=== PATIENT | male | born 1945 | race Caucasian/White ===

== ENCOUNTER 2021-07-27 15:37 | Emergency (ER) | payer OTHER, MEDICARE, SELFPAY ==
--- NOTE | ~2021-07-27 | CT_ITS ---
EXAMINATION: CT ABDOMEN AND PELVIS WITH CONTRAST CLINICAL INFORMATION: Left inguinal hernia. COMPARISON: None TECHNIQUE: Multidetector volumetric images were obtained from the superior aspect of the liver through the pubic symphysis following administration 85 mL of Omnipaque 350 intravenous contrast. Sagittal and coronal reformatted images were obtained on the technologist's workstation. Oral contrast: No This CT examination was performed using dose optimization techniques as appropriate, variously including the following: *Automated exposure control. *Adjustment of mA and/or kV according to patient size (this includes techniques or standardized protocols for targeted exams where dose is matched to indication/reason for exam; i.e. extremities or head). *Use of iterative reconstruction technique. DLP: 670 mGy-cm FINDINGS: LUNG BASES: The visualized lung bases are unremarkable. LIVER, GALLBLADDER, AND BILIARY TREE: The liver is normal in size, shape, and attenuation. No focal hepatic lesion or biliary ductal dilatation is present. The gallbladder is unremarkable with no evidence of radiopaque gallstones, gallbladder wall thickening, or obvious pericholecystic inflammatory changes. PANCREAS: Unremarkable. SPLEEN: Unremarkable. ADRENAL GLANDS: Unremarkable. KIDNEYS AND URETERS: The kidneys are normal in size, shape, and attenuation. No hydronephrosis, hydroureter, or calculi seen. No perinephric stranding. BLADDER: Unremarkable. GASTROINTESTINAL TRACT: There are a few scattered colonic diverticula. No evidence of acute diverticulitis. No bowel wall thickening or associated inflammatory change. No small or large bowel obstruction. Mild stool burden. Unremarkable appendix. PERITONEAL CAVITY: No intra-abdominal free air or free fluid. ABDOMINAL WALL: No significant hernia is appreciated. LYMPH NODES: Normal. VASCULAR: Unremarkable. PELVIC VISCERA: Prominent prostatomegaly. OSSEOUS STRUCTURES: S-shaped scoliotic curvature of the lumbosacral spine. No acute fracture or subluxation. No concerning lytic or blastic osseous lesion. CT/CT abdomen pelvis w con IMPRESSION: 1. No significant abdominal or pelvic wall hernia. 2. Scattered diverticulosis without evidence of acute diverticular disease. Mild stool burden. No small or large bowel obstruction. Unremarkable appendix. 3. Prominent prostatomegaly.
--- NOTE | ~2021-07-27 | US_ITS ---
EXAMINATION: US SCROTUM CLINICAL INFORMATION: Testicular pain. COMPARISON: None pertinent TECHNIQUE: A sonogram of the scrotum was performed assessing robb-scale appearance and color Doppler flow. Spectral Doppler analysis of the arterial and venous flow were performed in the testes bilaterally. FINDINGS: RIGHT: Right testicle measures 3.7 x 2.4 x 2.8 cm, volume 13.5 mL. No focal testicular parenchymal lesions are visualized. Spectral Doppler analysis of the arterial and venous flow is normal in the right testis. Right epididymal head is normal in size. There is a trace right hydrocele. No right varicocele is seen. Right epididymal Doppler flow is normal. LEFT: Left testicle measures 4.0 x 2.4 x 2.9 cm, volume 14.9 mL. No focal testicular parenchymal lesions are visualized. Spectral Doppler analysis of the arterial and venous flow is normal in the left testis. Left epididymal head is normal in size. Trace left hydrocele. No left varicocele is seen. Left epididymal Doppler flow is normal. US/US scrotum doppler IMPRESSION: Trace bilateral hydroceles. Otherwise unremarkable examination. No evidence of testicular torsion or hyperemia.
--- NOTE | ~2021-07-27 | US_ITS ---
EXAMINATION: US SCROTUM CLINICAL INFORMATION: Testicular pain. COMPARISON: None pertinent TECHNIQUE: A sonogram of the scrotum was performed assessing robb-scale appearance and color Doppler flow. Spectral Doppler analysis of the arterial and venous flow were performed in the testes bilaterally. FINDINGS: RIGHT: Right testicle measures 3.7 x 2.4 x 2.8 cm, volume 13.5 mL. No focal testicular parenchymal lesions are visualized. Spectral Doppler analysis of the arterial and venous flow is normal in the right testis. Right epididymal head is normal in size. There is a trace right hydrocele. No right varicocele is seen. Right epididymal Doppler flow is normal. LEFT: Left testicle measures 4.0 x 2.4 x 2.9 cm, volume 14.9 mL. No focal testicular parenchymal lesions are visualized. Spectral Doppler analysis of the arterial and venous flow is normal in the left testis. Left epididymal head is normal in size. Trace left hydrocele. No left varicocele is seen. Left epididymal Doppler flow is normal. US/US scrotum IMPRESSION: Trace bilateral hydroceles. Otherwise unremarkable examination. No evidence of testicular torsion or hyperemia.
[2021-07-27 15:43] VITALS: BP 140/90; BP 180/95; PULSE 60; PULSE 65; RESP 18; TEMP 36.7; O2SAT 98; BMI 24.3
[2021-07-27 16:17] LABS: Glucose Urine UA NEG (NEG); Leukocyte Esterase Urine NEG (NEG); Nitrite Urine NEG (NEG); PH 6.5 (5.0-8.0); Urine Blood NEG (NEG); Urine Ketones NEG (NEG); Urine Protein NEG (NEG-TRACE)
[2021-07-27 16:18] LABS: Appearance Urine CLEAR; Color Urine YELLOW
--- NOTE | 2021-07-27 16:52 | ED_ITS ---
HPI - Male Genitourinary General Chief complaint: Urogenital-Male Stated complaint: TESTICULAR PAIN, UNABLE TO URINATE Time Seen by Provider: 07/27/21 15:51 Source: patient Mode of arrival: ambulatory Limitations: other (mild dementia) History of Present Illness HPI Narrative: 75-year-old male who lives at independent living his mild dementia and thyroid disease presents for sudden onset of a feeling of heavy testicular pain at 8:00 a.m. this morning. Patient states the pain is worse with standing. No nausea vomiting or fevers. No dysuria, hematuria, or urinary retention. No penile discharge. is not sexually active. MD Complaint: testicle pain Onset (ago): hour(s) (8) Duration: constant Location: right testicle and left testicle Severity: moderate Severity scale (1-10): 5 Quality: dull Relieving factors: rest Exacerbating factors: other (Standing) Associated symptoms: Reports denies other symptoms Related Data Home Medications Medication Instructions Recorded Confirmed rivastigmine 13.3 mg/24 hour 1 patch TOPICAL DAILY 07/27/21 07/27/21 transdermal patch Allergies Allergy/AdvReac Type Severity Reaction Status Date / Time No Known Allergies Allergy Unverified 08/16/20 14:34 [No Known Allergies*] Review of Systems Constitutional: Constitutional: Denies chills and Denies fever(s) Eyes: Eyes: Denies blurry vision and Denies change in vision Cardiovascular: Cardiovascular: Denies chest pain and Denies dyspnea Respiratory: Respiratory: Denies chest congestion, Denies cough and Denies dyspnea Gastrointestinal: Gastrointestinal: Denies abdominal pain, Denies diarrhea, Denies nausea and Denies vomiting Genitourinary: Genitourinary: Denies hematuria, Denies oliguria, Denies difficulty urinating, Denies genital lesions, Denies dysuria, Denies flank pain, Denies penile discharge, Denies scrotal swelling, Reports testicular pain, Denies urinary frequency, Denies urinary hesitancy, Denies urinary incontinence and Denies urinary urgency Musculoskeletal: Musculoskeletal: Denies back pain, Denies numbness and Denies tingling Integumentary/Breasts: Skin/Breast: Denies erythema, Denies rash, Denies skin pain, Denies skin swelling and Denies wounds Neurologic: Denies numbness and Denies tingling PMFSH Past Medical History Medical History Dementia No known health problems Surgical History No history of previous surgery Social History Social History Advance Directives: No Advance Directives Information Provided: Yes Physical Exam Vital Signs: Vital Signs: Last Vital Signs Temp 97.6 F 07/27/21 20:06 Pulse 54 07/27/21 20:06 Resp 16 07/27/21 20:06 BP 164/100 H 07/27/21 20:06 Pulse Ox 97 07/27/21 20:06 Body Mass Index 24.3 Const: General: cooperative, no acute distress, well developed, alert and awake Nutritional Appearance: well nourished Orientation/consciousness: patient oriented x3 Limitations: other limitations (mild dementia) HENMT: Head: Yes normal to inspection, Yes normocephalic and Yes atraumatic Ears: hearing grossly normal bilaterally, external ears normal, TM's normal bilaterally and EAC's normal General nose exam: Normal external nose present Face and sinus: Yes normal facial exam and Yes sinuses nontender Mouth: Normal oral and palatal mucosa present Throat: Yes posterior oropharynx normal Eyes: Conjunctivae: conjunctivae normal Pupils: Equal, round and reactive pupils present EOM: EOMs intact bilaterally Neck: Neck: Yes full ROM, Yes no lymphadenopathy and Yes supple Resp: Effort & Inspection: normal respiratory effort and able to speak in comp lete sentences Auscultation: clear to auscultation bilaterally, no crackles, no rales, no rhonchi and no wheezes Cardio: Rate: regular rate Rhythm: regular rhythm Heart sounds: S1 normal heart sound present and S2 normal heart sound present GI: Inspection: Yes normal to inspection Palpation (GI): Soft to palpation, nontender, no guarding and not rigid Percussion: Yes normal to percussion Auscultation: normal bowel sounds : General: Yes no CVA tenderness Male General Exam: Yes normal external exam, No ecchymosis, No edema, No erythema and No Genital lesions present Penis: normal penis, circumcised, no masses, no nodules, no papules, no pustules, no swelling, no ulcerations and No Genital lesions present Meatus: meatus normal and No Blood at meatus present Scrotum: scrotum normal, no ecchymosis, not edematous, not erythematous, testes descended bilaterally, no hydroceles, inguinal hernia on the left, no masses, no scrotal swelling and no varicoceles Testes: epididymides normal, no epidiymal tenderness, no testicular swelling and testicular tenderness diffuse Back/Spine/Pelvis: Back: no CVA tenderness Skin: General skin exam: no rashes or lesions noted Neuro: General: patient oriented x3, tone normal and moves all extremities Cranial nerves: Yes Equal, round and reactive pupils present Extrem: General: Yes normal to inspection and Yes full ROM Psych: Appearance: grossly normal Affect: normal affect Attitude: cooperative Thought process: Normal thought process present Course Course Course Narrative: 75-year-old male presents with new onset bilateral testicular pain that started at 8:00 a.m. this morning. Patient felt like ?my bowels will drop out?. States the pain has been a heavy sensation is worse with standing. On exam, patient has stable vitals, urine is clean, patient mild tenderness to bilateral testicles. Patient has reducible lump in left inguinal area. Ultrasound shows normal venous flow, with trace bilateral hydroceles. Will CT for inguinal hernia. CT shows no hernia, does show large prostate CT abd/pelvis: 1. No significant abdominal or pelvic wall hernia. ? 2. Scattered diverticulosis without evidence of acute diverticular disease. Mild stool burden. No small or large bowel obstruction. Unremarkable appendix. ? 3. Prominent prostatomegaly. Advised patient to follow-up with Urologist. Referred patinet to Dr Farmer [facility] - Male Genitourinary Lab Data Result diagrams: 07/27/21 17:43 07/27/21 17:43 Labs: Lab Results 07/27/21 07/27/21 07/27/21 Range/Units 16:01 17:43 17:43 WBC 7.5 (4.8-10.8) X10*3/uL RBC 4.69 (4.60-5.80) X10*6/uL Hgb 14.7 (14.0-18.0) g/dl Hct 42.8 (42-52) % MCV 91.3 (80-98) fL MCH 31.3 (27.0-33.0) pg MCHC 34.3 (31.0-36.0) g/dl RDW 12.9 (11.0-16.0) % Plt Count 231 (160-400) X10*3/uL MPV 9.2 L (9.4-12.4) fL Immature Gran % (Auto) 0.1 (0.0-0.4) % Neut % (Auto) 56.2 (45-73) % Lymph % (Auto) 33.6 (20-40) % [place] % (Auto) 7.4 (2-11) % Eos % (Auto) 2.3 (0-4) % Baso % (Auto) 0.4 (0-2) % Lymph # (Auto) 2.5 (1.2-4.9) X10*3/uL [place] # (Auto) 0.6 (0.1-1.2) X10*3/uL Eos # (Auto) 0.2 (0.0-0.4) X10*3/uL Baso # (Auto) 0.0 (0.0-0.2) X10*3/uL Abs Immat Gran (auto) 0.01 (0.00-0.03) X10*3/uL Absolute Neuts (auto) 4.2 (2.0-8.3) X10*3/uL Absolute Nucleated RBC 0.000 (0.0-0.012) X10*3/uL Nucleated RBC % (auto) 0.0 (0.0-0.2) /100WBC Sodium 140 (135-145) mmol/L Potassium 4.2 (3.3-5.1) mmol/L Chloride 105 (96-108) mmol/L Carbon Dioxide 26 (22-29) mmol/L Anion Gap 13 (12-20) BUN 17 H (9-16) mg/dL Creatinine 1.05 (0.5-1.4) mg/dL Estim Creat Clear Calc 58.9 Estimated GFR > 60 Random Glucose 92 (60-115) mg/dL Calcium 9.0 (8.4-10.2) mg/dL Total Bilirubin 0.3 (0.0-1.0) mg/dL AST 19 (5-37) U/L ALT 19 (0-40) U/L Alkaline Phosphatase 61 (39-117) U/L Total Protein 6.9 (6.5-8.0) g/dL Albumin 4.4 (3.5-5.0) g/dL Urine Color YELLOW Urine Appearance CLEAR Urine pH 6.5 (5.0-8.0) Ur Specific [place] 1.010 (1.005-1.025) Urine Protein NEG (NEG-TRACE) MG/DL Urine Glucose (UA) NEG (NEG) MG/DL Urine Ketones NEG (NEG) MG/DL Urine Blood NEG (NEG) Urine Nitrite NEG (NEG) Ur Leukocyte Esterase NEG (NEG) Discharge Plan Discharge Clinical Impression: Enlarged prostate Patient Disposition: Home, Self-Care Instructions: Enlarged Prostate (BPH) (ED) Additional Instructions: Please call Dr Farmer, Urologist at [phone] Please return to emergency room for new or concerning symptoms Prescriptions: No Action rivastigmine 13.3 mg/24 hour patch 24 hour 1 patch topical DAILY RF: 0 Referrals: Nicholas Farmer MD [Physician] - 2 days (testicular pain, normal US, CT s howed enlarged prostate)
[2021-07-27] MEDS: 0.9 % Sodium Chloride 1,000 ML 999 ML IV (17:45)
[2021-07-27 17:47] LABS: MANUAL DIFF FLAG NO
[2021-07-27 17:49] LABS: Basophils Percent Auto 0.4 % (0-2); Eosinophils Absolute Auto 0.2 X10*3/uL (0.0-0.4); Eosinophils Percent Auto 2.3 % (0-4); Hematocrit 42.8 % (42-52); Hemoglobin 14.7 g/dl (14.0-18.0); Imm Gran Abs Auto 0.01 X10*3/uL (0.00-0.03); Imm Gran Pct Auto 0.1 % (0.0-0.4); Lymphocytes Absolute Auto 2.5 X10*3/uL (1.2-4.9); Lymphocytes Percent Auto 33.6 % (20-40); Mean Corpuscular HGB Conc 34.3 g/dl (31.0-36.0); Mean Corpuscular Hemoglobin 31.3 pg (27.0-33.0); Mean Corpuscular Volume 91.3 fL (80-98); Mean Platelet Volume 9.2 fL (9.4-12.4); Monocytes Absolute Auto 0.6 X10*3/uL (0.1-1.2); Monocytes Percent Auto 7.4 % (2-11); Neutrophils Absolute Auto 4.2 X10*3/uL (2.0-8.3); Neutrophils Percent Auto 56.2 % (45-73); Platelet Count 231 X10*3/uL (160-400); Red Blood Count 4.69 X10*6/uL (4.60-5.80); Red Cell Distribution Width 12.9 % (11.0-16.0); White Blood Count 7.5 X10*3/uL (4.8-10.8)
[2021-07-27 18:11] LABS: Alanine Aminotransferase 19 U/L (0-40); Albumin Level 4.4 g/dL (3.5-5.0); Alkaline Phosphatase 61 U/L (39-117); Anion Gap 13 (12-20); Aspartate Amino Transferase 19 U/L (5-37); Bilirubin Total 0.3 mg/dL (0.0-1.0); Blood Urea Nitrogen 17 mg/dL (9-16); Carbon Dioxide 26 mmol/L (22-29); Chloride 105 mmol/L (96-108); Creatinine Clr Calc Pharmacy 58.9; Estimated Glomerular Filt Rate > 60; Glucose Random 92 mg/dL (60-115); Potassium 4.2 mmol/L (3.3-5.1); Sodium 140 mmol/L (135-145); Total Protein 6.9 g/dL (6.5-8.0)
[2021-07-27] MEDS: iohexoL 350 MG/ML 100 ML INFUS..BTL IV (20:01)
[2021-07-27 20:06] VITALS: BP 164/100; PULSE 54; RESP 16; TEMP 36.4; O2SAT 97
== END 2021-07-27 21:21 | disposition home or self-care (01) ==
PROVIDERS: Physician Assistant; Emergency Provider Emergency Medicine; PCP Internal Medicine
DX: N40.0 Benign prostatic hyperplasia without lower urinary tract symptoms (principal); N50.812 Left testicular pain; N50.811 Right testicular pain
CPT/HCPCS: 36415; 74177; 76870; 80053; 81003; 85025; 93975; 96360; 99284; Q9967

== ENCOUNTER → 2021-08-21 09:07 | Outpatient (BNVA) | payer MEDICARE, OTHER, SELFPAY | PROVIDERS: PCP Internal Medicine; Visit Provider Urology | DX: R10.32 Left lower quadrant pain (principal) | CPT/HCPCS: 99202 ==

== ENCOUNTER 2022-12-13 18:34 | Observation (INO) | payer OTHER, MEDICARE, SELFPAY ==
--- NOTE | 2022-12-13 | ECG_ITS ---
Test Reason : dizziness Blood Pressure : / mmHG Vent. Rate : 057 BPM Atrial Rate : 057 BPM P-R Int : 134 ms QRS Dur : 080 ms QT Int : 452 ms P-R-T Axes : 015 005 056 degrees QTc Int : 439 ms Sinus bradycardia Otherwise normal ECG When compared with ECG of 16-OCT-2008 15:39, No significant change was found Referred By: Generic ED Physician Electronically Signed By:SHEYLA POSEY MD
--- NOTE | ~2022-12-13 | CT_ITS ---
EXAMINATION: CT ABDOMEN AND PELVIS WITH CONTRAST CLINICAL INFORMATION: Evaluate for pancreatitis COMPARISON: 07/27/2021 TECHNIQUE: Multidetector volumetric images were obtained from the superior aspect of the liver through the pubic symphysis following administration 85 mL of Omnipaque 350 intravenous contrast. Sagittal and coronal reformatted images were obtained on the technologist's workstation. Oral contrast: No This CT examination was performed using dose optimization techniques as appropriate, variously including the following: *Automated exposure control *Adjustment of mA and/or kV according to patient size (this includes techniques or standardized protocols for targeted exams where dose is matched to indication/reason for exam; i.e. extremities or head) *Use of iterative reconstruction technique DLP: 547 mGy-cm FINDINGS: LUNG BASES: Small 2 mm nodule on image 3 left lower lung stable LIVER, GALLBLADDER, AND BILIARY TREE: The liver is normal in size, shape, and attenuation. No focal hepatic lesion or biliary ductal dilatation is present. The gallbladder is unremarkable with no evidence of radiopaque gallstones, gallbladder wall thickening, or obvious pericholecystic inflammatory changes. PANCREAS: There is some fullness in the region of the distal body of the pancreas. SPLEEN: Unremarkable. ADRENAL GLANDS: Unremarkable. KIDNEYS AND URETERS: The kidneys are normal in size, shape, and attenuation. No hydronephrosis, hydroureter, or calculi seen. No perinephric stranding. BLADDER: Unremarkable. GASTROINTESTINAL TRACT: The bowel pattern is felt to be nonobstructing. Diverticula disease but no evidence for diverticulitis ABDOMINAL WALL: No significant hernia is appreciated. LYMPH NODES: Normal. VASCULAR: Some atherosclerotic changes. PELVIC VISCERA: Prominent prostate. OSSEOUS STRUCTURES: Unremarkable. CT/CT abdomen pelvis w IV con IMPRESSION: Motion degrades imaging. There is some fullness in the distal body of the pancreas with mild heterogeneous density. Element of pancreatitis would need to be considered given the history. Follow-up would be recommended as an underlying lesion cannot be excluded. Otherwise the bowel pattern is nonobstructing. There is no free fluid. Other findings as noted above Fleischner guidelines were followed.
--- NOTE | ~2022-12-13 | XR_ITS ---
EXAMINATION: XR CHEST CLINICAL INFORMATION: Low suspicion for aspiration COMPARISON: 09/15/2008 TECHNIQUE: Frontal view of the chest was obtained. FINDINGS: No infiltrate. The lung miller are grossly clear. Comparable to previous. The cardiac silhouette is within normal limits. Calcification in the aortic arch. Mildly tortuous versus ectatic aorta XR/XR chest 1V IMPRESSION: No acute finding.
--- NOTE | ~2022-12-13 | MR_ITS ---
EXAMINATION: MRI ABDOMEN WITH AND WITHOUT CONTRAST CLINICAL INFORMATION: abdominal pain, rule out pancreatic mass COMPARISON: 12/13/2022 CT scan TECHNIQUE: Multiple routine MRI sequences through the abdomen were obtained on a high-field 1.5Tesla MRI. Pre-and postcontrast images with 7.5 mL of Gadavist intravenous contrast were obtained. This included a dynamic contrast-enhanced technique. Images are degraded by patient respiratory motion. FINDINGS: Lung bases: The visualized lung bases are unremarkable. Liver: The liver is grossly normal in size, shape, and signal. No suspicious focal hepatic lesions seen. Specifically no suspicious arterial phase enhancing lesions or suspicious washout of contrast on later phases. No biliary ductal dilatation. Gallbladder: Gallbladder is unremarkable. No suspicious gallstones or filling defects. No gallbladder wall thickening or pericholecystic inflammatory changes. Pancreas: Pancreas body, neck, and head are homogeneous in signal. There is mild atrophy and fatty replacement in the region of the pancreatic tail but I do not appreciate any pancreatic ductal dilatation in this location or suspicious enhancing pancreatic mass. No pancreatic ductal dilatation or obstruction. Pancreatic duct measures up to 2 mm in maximal diameter. No peripancreatic inflammatory changes or fluid. Spleen: Unremarkable Adrenals: Unremarkable Kidneys: Kidneys are normal in size, shape, and signal. No suspicious renal mass lesion seen. No hydronephrosis or perinephric edema. Other: No bulky adenopathy MR/MR abdomen wo/w con IMPRESSION: There is mild atrophy and fatty replacement in the region of the pancreatic tail but I do not appreciate any suspicious pancreatic mass lesion or pancreatic ductal dilatation. No peripancreatic inflammatory changes or fluid.
[2022-12-13 18:43] VITALS: BP 148/78; BP 172/89; PULSE 60; PULSE 61; RESP 20; TEMP 36.4; O2SAT 100; BMI 24.1
--- NOTE | 2022-12-13 19:38 | ED_ITS ---
HPI - General Adult General Chief complaint: Dizziness Stated complaint: Dizzy, vomiting, diff breathing per EMS Time Seen by Provider: 12/13/22 19:21 Source: patient and family Mode of arrival: ambulatory Limitations: no limitations History of Present Illness HPI narrative: Patient comes to the emergency room accompanied by his daughter. Earlier today, patient was eating dinner at home, patient had a sudden onset of epigastric pressure and 1 episode of vomiting. No diarrhea, no fever chills. No abdominal pain. At this time, after vomiting, patient states that he feels well and back to normal. Related Data Home Medications Medication Instructions Recorded Confirmed rivastigmine 13.3 mg/24 hour 1 patch topical DAILY 07/27/21 07/27/21 transdermal patch levothyroxine 50 mcg tablet 50 mcg PO DAILY 08/21/21 Allergies Allergy/AdvReac Type Severity Reaction Status Date / Time No Known Allergies Allergy Unverified 08/21/21 09:12 [No Known Allergies*] Review of Systems Review of Systems: Constitutional : No Weight loss, No Fever, No Chills, No Night Sweats, No Fatigue, No Malaise ENT/Mouth : No Hearing loss, No Ear Pain, No Nasal Congestion, No Sinus Pain, No Hoarseness, No sore throat, No Rhinorrhea, No Swallowing Difficulty Eyes: No Eye Pain, No Swelling, No Redness, No Foreign Body, No Discharge, No Vision Changes Cardiovascular : No Chest Pain, No SOB, No Dyspnea on Exertion, No Orthopnea, No Edema, No Palpitations Respiratory : No Cough, No Sputum, No Wheezing, No Smoke Exposure, No Dyspnea Gastrointestinal : 1 episode of nausea and vomiting, No Diarrhea, No Constipation, mild epigastric pressure that resolved after vomiting, No Hematochezia, No Melena Genitourinary : no irregular bleeding, No Dysuria, No Urinary Frequency, No Hematuria, No Urinary Incontinence, No Urgency, No Flank Pain, No Urinary Flow Changes, No Hesitancy Musculoskeletal : No joint pain, No Myalgias, No Joint Swelling Skin : No Skin Lesions, No rash Neuro : No Weakness, No Numbness, No Paresthesias, No Loss of Consciousness, No Dizziness, No Headache Psych : No Anxiety/Panic, No Depression, No SI/HI/AH/VH, No Social Issues, Heme/Lymph: No Bruising, No Bleeding,No Lymphadenopathy Endocrine : No Polyuria, No Polydipsia, No Temperature Intolerance [facility] Past Medical History Medical History (Updated 12/13/22 @ 23:46 by Doris Ricketts MD) Dementia Hypothyroidism Surgical History No history of previous surgery Family History Family History (Updated 12/13/22 @ 23:39 by Doris Ricketts MD) Sister Pancreatic cancer Social History Social History Advance Directives: No Advance Directives Information Provided: No Physical Exam ED Vital Signs: Vital Signs - 24 hr 12/13/22 18:43 12/13/22 20:01 12/13/22 22:00 Temperature 97.5 F 97.9 F Pulse Rate 61 55 61 Respiratory Rate 20 17 16 Blood Pressure 172/89 H 161/83 H 155/81 H Pulse Oximetry 100 95 95 Oxygen Delivery Method Room Air Room Air Room Air BMI result Body Mass Index 24.1 Const Other: Appearance: Alert. Oriented X3. No acute distress. Eyes: Pupils equal, round and reactive to light. ENT: Pharynx normal. Neck: Normal inspection. Neck supple. No lymph nodes noted. No crepitus CVS: Normal heart rate and rhythm. Pulses normal. Normal S1 and S2 Respiratory: No respiratory distress. Breath sounds normal. No Wheezing. No rales Abdomen: Soft and nontender. No rigidity. No distention. Skin: Skin warm and dry. Normal skin color. Normal skin turgor. Extremities: No lower extremity edema. No Lacerations. No Rash Neuro: Oriented X 3. No motor deficit. No sensory deficit. Moving all extremities. No slurred speech. CN 2 through 12 grossly intact Psych: calm, cooperative, normal affect Course Course Course Narrative: -patient well-appearing, no longer having any symptoms -patient's labs pending. -patient declined nausea or pain medication. -lipase is elevated, patient has no symptoms. -I ordered a CT scan, which shows fullness in the distal body of the pancreas. This could be pancreatitis with a lesion cannot be ruled out -I discussed the CT scan findings with the patient and his daughter. They informed me that the patient's sister last year of pancreatic cancer -I discussed the above-mentioned with Dr. Hull, patient being admitted. Patient may need more advanced imaging. Medications Administered Discontinued Medications Generic Name Dose Route Start Last Admin Trade Name Freq PRN Reason Stop Dose Admin Sodium Chloride 1,000 mls @ 999 mls/hr 12/13/22 19:33 12/13/22 19:59 Ns IVCONT 12/13/22 20:33 999 mls/hr .Q1H1M ONE Administration Iohexol 100 ml 12/13/22 22:37 12/13/22 22:38 Iohexol 350 Mg/Ml 100 Ml Infus..Btl IV 12/13/22 22:38 85 ml ONCE ONE Administration Medical Decision Making Differential Diagnosis Differential Diagnoses: The differential diagnosis associated with the presentation includes (Viral syndrome, pancreatitis, pancreatic mass) Admission/Observation Consideration of admission/observation: Escalation of care including admission/observation considered (Given the patient's labs, CT scan and family history, we will go ahead and admit the patient.) Consult Healthcare Provider Management of the patient was discussed with: Hospitalist Lab Data MDM Lab Attestation statement: I reviewed the patient's lab results. 12/13/22 19:56 12/13/22 19:56 Labs: Lab Results 12/13/22 12/13/22 12/13/22 Range/Units 19:55 19:56 19:56 WBC 9.8 (4.8-10.8) X10*3/uL RBC 4.80 (4.60-5.80) X10*6/uL Hgb 15.0 (14.0-18.0) g/dl Hct 43.0 (42.0-52.0) % MCV 89.6 (80.0-98.0) fL MCH 31.3 (27.0-33.0) pg MCHC 34.9 (31.0-36.0) g/dl RDW 12.9 (11.0-16.0) % Plt Count 234 (160-400) X10*3/uL MPV 9.1 L (9.4-12.4) fL Immature Gran % (Auto) 0.3 (0.0-0.4) % Neut % (Auto) 82.1 H (45-73) % Lymph % (Auto) 10.7 L (20-40) % [place] % (Auto) 5.9 (2-11) % Eos % (Auto) 0.6 (0-4) % Baso % (Auto) 0.4 (0-2) % Lymph # (Auto) 1.1 L (1.2-4.9) X10*3/uL [place] # (Auto) 0.6 (0.1-1.2) X10*3/uL Eos # (Auto) 0.1 (0.0-0.4) X10*3/uL Baso # (Auto) 0.0 (0.0-0.2) X10*3/uL Abs Immat Gran (auto) 0.03 (0.00-0.03) X10*3/uL Absolute Neuts (auto) 8.0 (2.0-8.3) x10*3/uL Absolute Nucleated RBC 0.000 (0.0-0.012) X10*3/uL Nucleated RBC % (auto) 0.0 (0.0-0.2) /100WBC Sodium 139 (135-145) mmol/L Potassium 3.6 (3.3-5.1) mmol/L Chloride 104 (96-108) mmol/L Carbon Dioxide 24 (22-29) mmol/L Anion Gap 15 (12-20) BUN 17 H (9-16) mg/dL Creatinine 0.99 (0.5-1.4) mg/dL Estim Creat Clear Calc 62.4 Estimated GFR > 60 Random Glucose 137 H (60-115) mg/dL Calcium 8.9 (8.4-10.2) mg/dL Total Bilirubin 0.5 (0.0-1.0) mg/dL Direct Bilirubin 0.2 (0.0-0.5) mg/dL AST 20 (5-37) U/L ALT 23 (0-40) U/L Alkaline Phosphatase 85 (39-117) U/L Troponin I High Sens (<3.5-35.0) ng/L Total Protein 7.0 (6.5-8.0) g/dL Albumin 4.2 (3.5-5.0) g/dL Lipase 437 H (8-78) U/L COVID-19 (JEANETH) Negative (Negative) COVID-19 Clin Com See Note 12/13/22 Range/Units 19:56 WBC (4.8-10.8) X10*3/uL RBC (4.60-5.80) X10*6/uL Hgb (14.0-18.0) g/dl Hct (42.0-52.0) % MCV (80.0-98.0) fL MCH (27.0-33.0) pg MCHC (31.0-36.0) g/dl RDW (11.0-16.0) % Plt Count (160-400) X10*3/uL MPV (9.4-12.4) fL Immature Gran % (Auto) (0.0-0.4) % Neut % (Auto) (45-73) % Lymph % (Auto) (20-40) % [place] % (Auto) (2-11) % Eos % (Auto) (0-4) % Baso % (Auto) (0-2) % Lymph # (Auto) (1.2-4.9) X10*3/uL [place] # (Auto) (0.1-1.2) X10*3/uL Eos # (Auto) (0.0-0.4) X10*3/uL Baso # (Auto) (0.0-0.2) X10*3/uL Abs Immat Gran (auto) (0.00-0.03) X10*3/uL Absolute Neuts (auto) (2.0-8.3) x10*3/uL Absolute Nucleated RBC (0.0-0.012) X10*3/uL Nucleated RBC % (auto) (0.0-0.2) /100WBC Sodium (135-145) mmol/L Potassium (3.3-5.1) mmol/L Chloride (96-108) mmol/L Carbon Dioxide (22-29) mmol/L Anion Gap (12-20) BUN (9-16) mg/dL Creatinine (0.5-1.4) mg/dL Estim Creat Clear Calc Estimated GFR Random Glucose (60-115) mg/dL Calcium (8.4-10.2) mg/dL Total Bilirubin (0.0-1.0) mg/dL Direct Bilirubin (0.0-0.5) mg/dL AST (5-37) U/L ALT (0-40) U/L Alkaline Phosphatase (39-117) U/L Troponin I High Sens < 3.5 (<3.5-35.0) ng/L Total Protein (6.5-8.0) g/dL Albumin (3.5-5.0) g/dL Lipase (8-78) U/L COVID-19 (JEANETH) (Negative) COVID-19 Clin Com Independent Interpretation I performed an independent interpretation of an: CT Scan (My interpretation of abdominal CT: Mildly enlarged pancreas.) Radiology Impression Discussion of test interpretation with radiology: I have reviewed the radiologist's reading. Radiologist Impression: INDINGS: LUNG BASES: Small 2 mm nodule on image 3 left lower lung stable LIVER, GALLBLADDER, AND BILIARY TREE: The liver is normal in size, shape, and attenuation. No focal hepatic lesion or biliary ductal dilatation is present. The gallbladder is unremarkable with no evidence of radiopaque gallstones, gallbladder wall thickening, or obvious pericholecystic inflammatory changes.? PANCREAS: There is some fullness in the region of the distal body of the pancreas.? SPLEEN: Unremarkable.? ADRENAL GLANDS: Unremarkable.? KIDNEYS AND URETERS: The kidneys are normal in size, shape, and attenuation. No hydronephrosis, hydroureter, or calculi seen. No perinephric stranding. ? BLADDER: Unremarkable.? GASTROINTESTINAL TRACT: The bowel pattern is felt to be nonobstructing. Diverticula disease but no evidence for diverticulitis? ABDOMINAL WALL: No significant hernia is appreciated.? LYMPH NODES: Normal. VASCULAR: Some atherosclerotic changes. PELVIC VISCERA: Prominent prostate.? OSSEOUS STRUCTURES: Unremarkable.? CT/CT abdomen pelvis w IV con IMPRESSION: Motion degrades imaging. There is some fullness in the distal body of the pancreas with mild heterogeneous density. Element of pancreatitis would need to be considered given the history. Follow-up would be recommended as an underlying lesion cannot be excluded. ? Otherwise the bowel pattern is nonobstructing. There is no free fluid. ? Other findings as noted above? ? Fleischner guidelines were followed. Independent Historian Clinical information obtained from an independent historian. History obtained from or confirmed by: Other Patient's daughter Critical Care Time Critical Care Time Critical Care Time: Yes Total Critical Care Time: 40 Attestation: I have personally provided critical care time. Time includes review of lab data, radiology results, discussion with consultants, and monitoring for potential decompensation. Intervention performed as documented. Discharge Plan Discharge Clinical Impression: Acute pancreatitis Patient Disposition: Admitted As Inpatient Prescriptions: No Action rivastigmine 13.3 mg/24 hour patch 24 hour 1 patch topical DAILY levothyroxine 50 mcg tablet 50 mcg PO DAILY
[2022-12-13] MEDS: 0.9 % Sodium Chloride 1,000 ML 999 ML IVCONT (19:59)
[2022-12-13 20:00] LABS: MANUAL DIFF FLAG NO
[2022-12-13 20:01] VITALS: BP 161/83; PULSE 55; RESP 17; O2SAT 95
[2022-12-13 20:03] LABS: Basophils Percent Auto 0.4 % (0-2); Eosinophils Absolute Auto 0.1 X10*3/uL (0.0-0.4); Eosinophils Percent Auto 0.6 % (0-4); Imm Gran Abs Auto 0.03 X10*3/uL (0.00-0.03); Imm Gran Pct Auto 0.3 % (0.0-0.4); Lymphocytes Absolute Auto 1.1 X10*3/uL (1.2-4.9); Lymphocytes Percent Auto 10.7 % (20-40); Mean Corpuscular HGB Conc 34.9 g/dl (31.0-36.0); Mean Corpuscular Hemoglobin 31.3 pg (27.0-33.0); Mean Corpuscular Volume 89.6 fL (80.0-98.0); Mean Platelet Volume 9.1 fL (9.4-12.4); Monocytes Absolute Auto 0.6 X10*3/uL (0.1-1.2); Monocytes Percent Auto 5.9 % (2-11); Neutrophils Percent Auto 82.1 % (45-73); Platelet Count 234 X10*3/uL (160-400); Red Cell Distribution Width 12.9 % (11.0-16.0); White Blood Count 9.8 X10*3/uL (4.8-10.8)
[2022-12-13 20:17] LABS: COVID-19 Test Negative (Negative); IDNOW Serial# 55D5AD1C
[2022-12-13 20:23] LABS: Alanine Aminotransferase 23 U/L (0-40); Albumin Level 4.2 g/dL (3.5-5.0); Alkaline Phosphatase 85 U/L (39-117); Anion Gap 15 (12-20); Aspartate Amino Transferase 20 U/L (5-37); Bilirubin Direct 0.2 mg/dL (0.0-0.5); Bilirubin Total 0.5 mg/dL (0.0-1.0); Blood Urea Nitrogen 17 mg/dL (9-16); Calcium 8.9 mg/dL (8.4-10.2); Carbon Dioxide 24 mmol/L (22-29); Chloride 104 mmol/L (96-108); Creatinine Clr Calc Pharmacy 62.4; Estimated Glomerular Filt Rate > 60; Glucose Random 137 mg/dL (60-115); Potassium 3.6 mmol/L (3.3-5.1); Sodium 139 mmol/L (135-145)
[2022-12-13 20:25] LABS: Troponin-I High Sensitivity < 3.5 ng/L (<3.5-35.0)
[2022-12-13 20:35] LABS: Lipase 437 U/L (8-78)
[2022-12-13 22:00] VITALS: BP 155/81; PULSE 61; RESP 16; TEMP 36.6; O2SAT 95
--- NOTE | 2022-12-13 22:03 | MHC.EDTECH ---
2200 rounding done patient vitals sign taken ,warm blanket given ,pt daughter at bedside ,patient watching television .
[2022-12-13] MEDS: iohexoL 350 MG/ML 100 ML INFUS..BTL IV (22:38)
--- NOTE | 2022-12-13 23:59 | P.HPHOSP_ITS ---
History of Present Illness Date of Service: 12/13/22 Chief Complaint: nausea vomiting, abdominal pain patient with past medical history of Alzheimer's as well as hypothyroidism presents to the hospital with episodes of nausea vomiting, abdominal pain. Patient has advanced Alzheimer's, has difficulty expressing himself in words, but his daughter at bedside helped with history. apparently while having dinner patient developed sudden onset abdominal pain across the abdomen, then shortly after developed projectile nausea and vomiting. Has not had any recurrent episodes while in the ED. denies any previous similar episodes, reports no recent weight loss, reports no history of alcohol abuse. daughter reports that the pt's sister from pancreatic cancer recently, on arrival to the hospital patient hemodynamically stable with elevated blood pressure Labs are unremarkable except for a lipase of 437, abdominal CT shows abdominal pelvic CT shows fullness in the distal body of the pancreas with mild heterogeneous density, element of pancreatitis with need to be considered given the history, follow-up is recommended Review of Systems Review of Systems: Yes all other systems are reviewed and are negative FORMERLY [facility], [facility] Medical History Dementia Hypothyroidism Family History Sister Pancreatic cancer Surgical History No history of previous surgery Social History Household Members: Caregiver Housing: Assisted Living Facility Unable to assess alcohol history related to: Unknown Patient Tobacco Use Status: Tobacco use Unknown Use of substances other than those prescribed or required for medical reasons: Unknown Advance Directives: No Advance Directives Information Provided: No Do you have thoughts of harming others: None Do you have a plan to hurt others: No Plan Recently lost weight without trying: Unsure How much weight loss: Unsure Nutrition Risks: No Nutritional Risk Meds Allergies Allergy/AdvReac Type Severity Reaction Status Date / Time No Known Allergies Allergy Unverified 08/21/21 09:12 [No Known Allergies*] Active Medications: Current Medications Acetaminophen (Acetaminophen 325 Mg Tablet) 650 mg PO Q6H PRN PRN Reason: Pain, Mild (Pain Scale 1-3) Docusate Sodium (Docusate Sodium 100 Mg Capsule) 100 mg PO DAILY PRN PRN Reason: Constipation Enoxaparin Sodium (Enoxaparin Sodium 40 Mg/0.4 Ml Syringe) 40 mg SUBCUT Q24H [facility] Lactated Ringer's (Lr) 1,000 mls @ 150 mls/hr IVCONT .Q6H40M [facility] Ondansetron HCl (Ondansetron Hcl 4 Mg/2 Ml Vial) 4 mg IVPUSH Q8H PRN PRN Reason: Nausea and Vomiting Sodium Chloride (0.9 % Sodium Chloride Flush 3 Ml Syringe) 3 ml IVFLUSH QSHIFT [facility] Home Medications Medication Instructions Recorded Confirmed Last Taken Type rivastigmine 13.3 mg/24 hour 1 patch topical DAILY 07/27/21 07/27/21 Unknown History transdermal patch levothyroxine 50 mcg tablet 50 mcg PO DAILY 08/21/21 Unknown History Physical Exam Vital Signs and Narrative: Vital Signs: Last Vital Signs Temp 97.9 F 12/13/22 22:00 Pulse 61 12/13/22 22:00 Resp 16 12/13/22 22:00 BP 155/81 H 12/13/22 22:00 Pulse Ox 95 12/13/22 22:00 O2 Del Method 12/13/22 22:00 BMI result Body Mass Index 24.1 Const: Other: patient is alert oriented, but has dementia General: cooperative and no acute distress Eyes: General: appearance normal, both eyes and all related structures Resp: Effort & Inspection: normal respiratory effort Auscultation: clear to auscultation bilaterally Cardio: Rate: regular rate Rhythm: regular rhythm GI: Other: abd is non-tender, no rebound or guarding Palpation (GI): Soft to palpation Auscultation: normal bowel sounds Skin: General skin exam: no rashes or lesions noted Neuro: Cognition (Neuro): normal cognition Extrem: General: Yes normal to inspection and Yes no pedal edema Results Labs 12/13/22 19:56 12/13/22 19:56 Labs: Laboratory Results - last 24 hr 12/13/22 12/13/22 12/13/22 19:55 19:56 19:56 MCV 89.6 MCH 31.3 MCHC 34.9 RDW 12.9 Plt Count 234 MPV 9.1 L Immature Gran % (Auto) 0.3 Neut % (Auto) 82.1 H Lymph % (Auto) 10.7 L Cabell % (Auto) 5.9 Eos % (Auto) 0.6 Baso % (Auto) 0.4 Lymph # (Auto) 1.1 L Cabell # (Auto) 0.6 Eos # (Auto) 0.1 Baso # (Auto) 0.0 Abs Immat Gran (auto) 0.03 Absolute Neuts (auto) 8.0 Absolute Nucleated RBC 0.000 Nucleated RBC % (auto) 0.0 Anion Gap 15 Estim Creat Clear Calc 62.4 Estimated GFR > 60 Random Glucose 137 H Calcium 8.9 Total Bilirubin 0.5 Direct Bilirubin 0.2 AST 20 ALT 23 Alkaline Phosphatase 85 Troponin I High Sens Total Protein 7.0 Albumin 4.2 Lipase 437 H COVID-19 (JEANETH) Negative COVID-19 Clin Com See Note 12/13/22 19:56 MCV MCH MCHC RDW Plt Count MPV Immature Gran % (Auto) Neut % (Auto) Lymph % (Auto) Cabell % (Auto) Eos % (Auto) Baso % (Auto) Lymph # (Auto) Cabell # (Auto) Eos # (Auto) Baso # (Auto) Abs Immat Gran (auto) Absolute Neuts (auto) Absolute Nucleated RBC Nucleated RBC % (auto) Anion Gap Estim Creat Clear Calc Estimated GFR Random Glucose Calcium Total Bilirubin Direct Bilirubin AST ALT Alkaline Phosphatase Troponin I High Sens < 3.5 Total Protein Albumin Lipase COVID-19 (JEANETH) COVID-19 Clin Com Imaging Radiologist's Impressions: Impressions Chest X-Ray 12/13/22 20:48 IMPRESSION: No acute finding. Abdomen/Pelvis CT 12/13/22 22:59 IMPRESSION: Motion degrades imaging. There is some fullness in the distal body of the pancreas with mild heterogeneous density. Element of pancreatitis would need to be considered given the history. Follow-up would be recommended as an underlying lesion cannot be excluded. Otherwise the bowel pattern is nonobstructing. There is no free fluid. Other findings as noted above Fleischner guidelines were followed. Assessment and Plan (1) Acute pancreatitis: Status: Acute (2) Nausea and vomiting: Status: Acute (3) Pancreatic lesion: Status: Acute Plan 77 yo M with Alzheimer's Dementia, pancreatitis presents to the hosptal with n/v and abd pain # nausea vomiting, abdominal pain - has evidence of pancreatitis versus pancreatic lesion on CT abdomen - elevated lipase - no abdominal tenderness on exam - will treat with fluids - antiemetics, IV pain control - keep NPO # acute pancreatitis versus pancreatic lesion - has history of pancreatic cancer in his sister who recently - no recent history of weight loss - no previous similar episode to this - will consult GI for further evaluation - manage as acute pancreatitis for now # hypothyroidism - continue levothyroxine DVT prophylaxis: Lovenox Time Spent With Patient Time: Total time managing care of this patient today ____ minutes. Quality Stroke Does the patient have a stroke diagnosis?: No VTE Prior VTE?: No VTE Risk Level:: Medical - moderate - high VTE Device Contraindication: Treatment Not Indicated VTE Drug Contraindication: N/A - Med Ordered
--- OUTSIDE RECORDS SUMMARY | 2022-12-14 00:03 | XMS_ITS | Continuity of Care Document ---
:1945 Author Organization [facility] Care Team Providers Name Role Phone [facility] Unavailable Unavailable Problems Combined list of problems from Department of Defense and Veterans Affairs facilities. It does not include entries that were removed or entered in error. 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 [facility] Osteoarthritis of Active Condition Sep 29 A [facility] knee (SNOMED CT 2011 [place] [id number]) Entered By: SHAWNA SCHWAB Comment: -- both knees Sensorineural Active Condition [facility] hearing loss, [place] bilateral (SNOMED HC S CT [id number]) Tinnitus Active Condition [facility] [place] [facility] Adjustment Inactive Condition 04/28/2019 [facility] Disorder with [place] [facility] Elevated blood Inactive Condition 03/14/2014 [facility] pressure reading [place] without diagnosis [facility] of hypertension Medications Combined list of outpatient medications from Department of Defense and Veterans Affairs facilities. Medications provided include 1) outpatient medications from the last 15 months, and 2) patient-reported medications. Medication Details Route Status Patient Prescription Prescription Last Ordering Order Source Instructions Expires Number Dispense Provider Date Date CHOLECALCIF TAKE ONE ORAL ACTIVE KIRARTURO,N 04/28/ [facility] EDMUND 25MCG TABLET ICOLE 2019 [facility] (1,000UNIT) BY MOUTH [facility] TAB ONCE [place] [facility] FISH OIL TAKE 2 ORAL ACTIVE KIRCHEN,N 04/28/ [facility] 1000MG CAPSULES ICOLE 2019 [facility] (500MG BY MOUTH [facility] DHA/EPA) ONCE [place] CAP,ORAL DAILY [facility] LEVOTHYROXI TAKE ONE ORAL ACTIVE SPENCER,RA NE NA 50MCG TABLET IMONDA 2019 [facility] TAB BY MOUTH JUAQUIN [facility] (SYNTHROID) EVERY [place] MORNING [facility] 30 HCS MINUTES BEFORE BREAKFAS T PSYLLIUM TAKE 1 ORAL ACTIVE CUTLER,WI POWDER,ORAL TABLESPO LLIAM S 2011 CNT RL ON BY [facility]N MOUTH [place] TWICE [facility]ILY [facility] NEEDED RIVASTIGMIN APPLY 1 TOPICA ACTIVE SPENCER,RA E PATCH TO L IMONDA 2019 [facility] 13.3MG/24HR SKIN PATCH JUAQUIN [facility] PATCH ONCE [facility] Immunizations Combined list of available immunizations from the Department of Defense and Veterans Affairs facilities. Immunization Series Date Administered Site Reaction Lot CVX Drug St atus Comments Source Given By Number Code Client Manager COVID-19 2 complet MOD; [facility] (MODERNA), 2020 ed [id number]; [facility] MRNA, LNP-S, 02 [facility] PF, 100 1 [place] MCG/0.5 ML [facility] COVID-19 1 complet MOD; [facility] (MODERNA), 2020 ed [id number]; [facility] MRNA, LNP-S, 02 [facility] PF, 100 1 [place] MCG/0.5 ML [facility] INFLUENZA, complet [facility] SEASONAL, 2018 ed [facility] INJECTABLE WST RN [place] [facility] INFLUENZA, complet [facility] SEASONAL, 2017 ed [facility] INJECTABLE [facility] [place] [facility] INFLUENZA, complet [facility] SEASONAL, 2017 ed [facility] INJECTABLE [facility] FLU,3 YRS complet [facility] (HISTORICAL) 2015 ed Center [facility] [place] [facility] FLU,3 YRS complet [facility] (HISTORICAL) 2014 ed center, [facility] [place] [facility] PNEUMOCOCCAL complet [facility] CONJUGATE PCV 2014 ed [facility] 13 [facility] [place] FLU,3 YRS complet [facility] (HISTORICAL) 2012 ed C [facility] [place] [facility] ZOSTER complet [facility] (HISTORICAL) 2012 ed C [facility] [place] [facility] DTAP, complet Site: [facility] UNSPECIFIED 2011 ed Right [facility] FORMULATION Deltoid [facility] [place] [facility] FLU,3 YRS complet Site: V A (HISTORICAL) 2011 ed Right C [facility] Deltoid [facility] [place] [facility] FLU,3 YRS complet [facility] A (HISTORICAL) 2011 ed C [facility] [place] [facility] PNEUMOCOCCAL, complet [facility] UNSPECIFIED 2009 ed CN [facility] FORMULATION WS [facility]N [facility] Encounters Combined list of: 1) Encounters from Department of Veterans Affairs facilities going back up to the last 18 months. 2) Encounters from the Department of Defense facilities going back up to 280 months. Location Location Encounter Encounter Reason Attending ADM DC Stat us Disposition Source Details Type Number For Provider Date Date Visit Outpatient [id number] 07/31 [id number] [facility] [place] Outpatient [id number] 12/18 [facility] Encounter [id number] /2022 [facility] Social History Combined list of available smoking, tobacco, and other social history from Department of Defense andVeterans Affairs facilities. Social History Response Date Comment Source Type Tobacco smoking VA-TOBACCO QUIT 15 06/20/2020 [facility] status NHIS YRS OR MORE [place] [facility] History of VA-TOBACCO FORMER 06/20/2020 [facility] tobacco use [facility]ER [place] [facility] History of VA-TOBACCO FORMER 04/28/2019 [facility] tobacco use [facility] [facility] History of QUIT TOBACCO USE > 04/19/2018 [facility] tobacco use 7 YEARS AGO [place] [facility] History of QUIT TOBACCO USE > 03/12/2017 [facility] tobacco use 7 YEARS AGO [place] [facility] History of QUIT TOBACCO USE > 03/26/2016 quit 30 yrs ago [facility] tobacco use 7 YEARS AGO [place] [facility] History of QUIT TOBACCO USE > 09/29/2012 [facility] tobacco use 7 YEARS A[facility] [place] [facility]
--- OUTSIDE RECORDS SUMMARY | 2022-12-14 00:03 | XMS_ITS | Encounter Summary ---
:1945 Author Organization [facility] Address [address] [place] [address] Support Name Relationship Address Phone BEAU STEWARD Unavailable [address] [facility] [place] [phone] BEAU STEWARD Unavailable [address] [facility] [place] [address] Insurance Providers: All historical and current Section Date Range: From patient's date of to the date document was created.This section includes the names of all active insurance providers for the patient. Insurance Type of Plan Start of End of Group Member Insurance Policy P atient's Provider Coverage Name Policy Policy Number ID Provider's Hurtado's Relationship Coverage Coverage Telephone Name to Policy Number Hurtado [employer] NEW MEDICARE MCR Nov 30, [id number] [phone] ZACHERY KEY PATIENT [facility] (WNR) [id number] MARCELA Dueñas [facility] (WNR) Selected Encounter This section includes the information on record at [place] for the Encounter. Date/Time Encounter Type Encounter Description Reason Provider Source Dec 18, 2021 10:14 Outpatient Encounter PRIMARY CARE/MEDICINE AM [facility] Encounter Template Text not used by AL Social History: Smoking Status (Most current) and Tobacco Use (All prior to encounter date) This section includes the most current, and the historical, smoking and tobacco-related health factors from the AL facility where the Encounter took place.Current Smoking Status This section includes the most current smoking, or tobacco-related health factor, from the AL facility where the Encounter took place. Date/Time Current Smoking Status [facility] Facility Jun 20, 2020 09:01 AM AL-TOBACCO QUIT 15 YRS OR AL CNT [facility] [place] [facility] Tobacco Use History This section includes a history of the smoking, or tobacco- related health factors, that were collected on or before the date of the Encounter. The data comes from the AL facility where the Encounter took place. Date/Time Smoking Status/Tobacco Use Comment Facil ity Jun 20, 2020 09:01 AM VA-TOBACCO QUIT 15 YRS OR [facility] [place] [facility] April 28, 2019 09:47 AM VA-TOBACCO FORMER USER [facility] [place] [facility] April 28, 2019 09:47 AM VA-TOBACCO QUIT 5 TO < 15 [facility] YRS [place] [facility] April 19, 2018 09:48 AM QUIT TOBACCO USE > 7 YEARS [facility] A[facility] [place] [facility] Mar 12, 2017 10:15 AM QUIT TOBACCO USE > 7 YEARS [facility] A[facility] [place] [facility] Mar 26, 2016 09:00 AM QUIT TOBACCO USE > 7 YEARS [facility] A[facility] quit 30 yrs ago [place] [facility] Sep 29, 2012 09:53 AM QUIT TOBACCO USE > 7 YEARS AL [facility] AGO [place] [facility] Encounter Notes: All associated encounter notes This section contains the clinical notes associated to the Encounter. Date/Time Encounter Note(s) Provider Source Dec 18, 2021 10:14 ADMINISTRATIVE NOTE: REMINGTON RUDOLPH [facility] AM LOCAL TITLE: ADMINISTRATIVE NOTE [facility] TITLE: ADMINISTRATIVE NOTE DATE OF NOTE: DEC 18, 2021@10:14 ENTRY DATE: DEC 18, 2021@10:14:46 AUTHOR: REMINGTON RUDOLPH EXP COSIGNER: URGENCY: STATUS: COMPLETED AMSA LEFT MESSAGE FOR RE: COVID BOOSTER VACCINE STATUS. ADVISED TO RETURN CALL TO [facility] IF INTERESTED IN RECEIVING B OOSTER. /es/ REMINGTON RUDOLPH ADVANCED INSPECTOR EXHAUST EMISSIONS Signed: 12/18/2021 10:15
[2022-12-14 00:06] VITALS: BP 188/94; PULSE 61; RESP 16; TEMP 36.7; O2SAT 98
[2022-12-14] MEDS: Enoxaparin Sodium 40 MG/0.4 ML SYRINGE SUBCUT (00:30)
[2022-12-14] MEDS: Lactated Ringers 1,000 ML 150 ML IVCONT ×3 (00:31→15:02)
[2022-12-14 03:05] VITALS: BMI 24.0
--- NOTE | 2022-12-14 03:12 | PC.NURSE ---
Pt arrived from the ED via stretcher at 0246, alert and oriented to self only, denies any discomfort, IVF of LR going on at 150ml/hr on the LAC G#20, site patent and intact, pt oriented to room and environment, instructed use of callbell placed near him, bed alarm on and Avasys placed for fall safety, monitoring analyst informed.
[2022-12-14 03:52] VITALS: BP 179/84; PULSE 56; RESP 16; TEMP 36.4; O2SAT 97
[2022-12-14 06:22] LABS: MANUAL DIFF FLAG NO
[2022-12-14 06:30] LABS: Basophils Absolute Auto 0.1 X10*3/uL (0.0-0.2); Basophils Percent Auto 0.6 % (0-2); Eosinophils Absolute Auto 0.2 X10*3/uL (0.0-0.4); Eosinophils Percent Auto 1.8 % (0-4); Hematocrit 42.5 % (42.0-52.0); Hemoglobin 14.6 g/dl (14.0-18.0); Imm Gran Abs Auto 0.02 X10*3/uL (0.00-0.03); Imm Gran Pct Auto 0.2 % (0.0-0.4); Lymphocytes Absolute Auto 2.2 X10*3/uL (1.2-4.9); Lymphocytes Percent Auto 25.2 % (20-40); Mean Corpuscular HGB Conc 34.4 g/dl (31.0-36.0); Mean Corpuscular Hemoglobin 30.9 pg (27.0-33.0); Mean Platelet Volume 9.2 fL (9.4-12.4); Monocytes Absolute Auto 0.7 X10*3/uL (0.1-1.2); Monocytes Percent Auto 7.9 % (2-11); Neutrophils Absolute Auto 5.5 x10*3/uL (2.0-8.3); Neutrophils Percent Auto 64.3 % (45-73); Platelet Count 208 X10*3/uL (160-400); Red Blood Count 4.72 X10*6/uL (4.60-5.80); Red Cell Distribution Width 12.9 % (11.0-16.0); White Blood Count 8.5 X10*3/uL (4.8-10.8)
[2022-12-14 06:48] LABS: Anion Gap 13 (12-20); Blood Urea Nitrogen 12 mg/dL (9-16); Calcium 8.6 mg/dL (8.4-10.2); Carbon Dioxide 25 mmol/L (22-29); Chloride 109 mmol/L (96-108); Creatinine Clr Calc Pharmacy 65.7; Estimated Glomerular Filt Rate > 60; Glucose Random 97 mg/dL (60-115); Potassium 4.3 mmol/L (3.3-5.1); Sodium 143 mmol/L (135-145)
[2022-12-14 08:07] VITALS: PULSE 65; RESP 16; TEMP 37.1
[2022-12-14 09:14] LABS: Triglycerides 108 mg/dL
--- NOTE | 2022-12-14 09:44 | PHA.MEDREC ---
Pharmacy Consult ? Medication Reconciliation Pharmacy has completed the medication reconciliation. Spoke to patient's daughter Tory which confirmed medications.
[2022-12-14] MEDS: Levothyroxine Sodium 50 MCG TABLET PO (10:40)
--- NOTE | 2022-12-14 13:56 | MHC.CM.PN ---
Addendum entered by Elvira Johnson RN 12/14/22 15:37: CM MET W/PT'S DTR/HCP [facility] AT BEDSIDE, IMM DELIVERED. [facility] REPORTS PT HAS ALZHEIMERS DEMENTIA, LIVES AT [facility], IS INDEP W/AMBULATION AND ADLS, PT DOES HAVE A CANE/WALKING STICK HOWEVER DOESN'T USE THEM, PT RECEIVES 3 MEALS/DAILY AND [facility] PROVIDES WEEKLY CLEANING, [facility] REPORTS PT IS CONFUSED AT BASELINE AND HAS PROBLEMS REMEMBERING WORDS. [facility] VERIFIES PCP IS NIECY MOLINA, HCP IS [facility] [phone], COPY HAS BEEN PROVIDED AND UPLOADED TO [facility] AND PLACED IN CHART, MODERNA X2. ANTIC D/C PLAN WILL BE FOR PT TO RETURN TO [facility]. Original Note: CM ATTEMPTED TO MEET W/PT HOWEVER PT IS ALERT TO NAME ONLY AND OTHERWISE CONFUSED AND DOES NOT NO , WHERE HE LIVES OR WHERE HE IS, CM WILL FOLLOW UP W/PT'S SON AND PRIMARY CONTACT.
--- NOTE | 2022-12-14 14:46 | HO.PM.IMPN ---
Subjective Subjective Date of Service: 12/14/22 Interval History: seen and examined this morning follow up for abdominal pain patient someone forgetful, history was obtained with the assistance of his daughter at the bedside abdominal pain seems to have improved. no nausea, no vomiting at this time Review of Systems Review of Systems: Yes all other systems are reviewed and are negative Constitutional Constitutional: Denies chills and Denies fever(s) Cardiovascular Cardiovascular: Denies chest pain, Denies palpitations and Denies dyspnea Respiratory Respiratory: Denies cough and Denies dyspnea Gastrointestinal Gastrointestinal: Denies abdominal pain, Denies diarrhea, Denies nausea and Denies vomiting Endocrine Endocrine: Denies palpitations Physical Exam Vital Signs: Vital Signs: Last Vital Signs Temp 98.7 F 12/14/22 08:07 Pulse 65 12/14/22 08:07 Resp 16 12/14/22 08:07 BP 179/84 H 12/14/22 03:52 Pulse Ox 97 12/14/22 03:52 O2 Del Method 12/14/22 03:52 BMI result Body Mass Index 24.0 Const: General: cooperative, comfortable, no acute distress, alert and awake Nutritional Appearance: average body habitus Orientation/consciousness: oriented to person and oriented to place Resp: Effort & Inspection: normal respiratory effort and able to speak in complete sentences Auscultation: clear to auscultation bilaterally Cardio: Rate: regular rate Heart sounds: S1 normal heart sound present and S2 normal heart sound present GI: Inspection: No distended Palpation (GI): Soft to palpation and nontender Neuro: General: oriented to person, oriented to place and CN's II-XI intact bilaterally Extrem: General: Yes no pedal edema Objective Data Active Medications Acetaminophen (Acetaminophen 325 Mg Tablet) 650 mg PO Q6H PRN PRN Reason: Pain, Mild (Pain Scale 1-3) Docusate Sodium (Docusate Sodium 100 Mg Capsule) 100 mg PO DAILY PRN PRN Reason: Constipation Enoxaparin Sodium (Enoxaparin Sodium 40 Mg/0.4 Ml Syringe) 40 mg SUBCUT Q24H [facility] Last Admin: 12/14/22 00:30 Dose: 40 mg Documented By: DAVY Lactated Ringer's (Lr) 1,000 mls @ 150 mls/hr IVCONT .Q6H40M [facility] Last Admin: 12/14/22 07:20 Dose: 150 mls/hr Documented By: MELO Levothyroxine Sodium (Levothyroxine Sodium 50 Mcg Tablet) 50 mcg PO DAILY@0600 [facility] Last Admin: 12/14/22 10:40 Dose: 50 mcg Documented By: BOOGIEEMA Ondansetron HCl (Ondansetron Hcl 4 Mg/2 Ml Vial) 4 mg IVPUSH Q8H PRN PRN Reason: Nausea and Vomiting Pharmacy Consult (Consult Rx Perform Med Rec) 1 each MISCELLANE ONCE PRN PRN Reason: Consult order Sodium Chloride (0.9 % Sodium Chloride Flush 3 Ml Syringe) 3 ml IVFLUSH QSHIFT [facility] Last Admin: 12/14/22 07:15 Dose: Not Given Documented By: MELO Non-Admin Reason: IV Running Labs 12/14/22 06:18 12/14/22 06:18 Labs: Laboratory Results - last 24 hr 12/13/22 12/13/22 12/13/22 19:55 19:56 19:56 MCV 89.6 MCH 31.3 MCHC 34.9 RDW 12.9 Plt Count 234 MPV 9.1 L Immature Gran % (Auto) 0.3 Neut % (Auto) 82.1 H Lymph % (Auto) 10.7 L [place] % (Auto) 5.9 Eos % (Auto) 0.6 Baso % (Auto) 0.4 Lymph # (Auto) 1.1 L [place] # (Auto) 0.6 Eos # (Auto) 0.1 Baso # (Auto) 0.0 Abs Immat Gran (auto) 0.03 Absolute Neuts (auto) 8.0 Absolute Nucleated RBC 0.000 Nucleated RBC % (auto) 0.0 Anion Gap 15 Estim Creat Clear Calc 62.4 Estimated GFR > 60 Random Glucose 137 H Calcium 8.9 Total Bilirubin 0.5 Direct Bilirubin 0.2 AST 20 ALT 23 Alkaline Phosphatase 85 Troponin I High Sens Total Protein 7.0 Albumin 4.2 Triglycerides Lipase 437 H COVID-19 (JEANETH) Negative COVID-19 Clin Com See Note 12/13/22 12/14/22 12/14/22 19:56 06:18 06:18 MCV 90.0 MCH 30.9 MCHC 34.4 RDW 12.9 Plt Count 208 MPV 9.2 L Immature Gran % (Auto) 0.2 Neut % (Auto) 64.3 Lymph % (Auto) 25.2 [place] % (Auto) 7.9 Eos % (Auto) 1.8 Baso % (Auto) 0.6 Lymph # (Auto) 2.2 [place] # (Auto) 0.7 Eos # (Auto) 0.2 Baso # (Auto) 0.1 Abs Immat Gran (auto) 0.02 Absolute Neuts (auto) 5.5 Absolute Nucleated RBC 0.000 Nucleated RBC % (auto) 0.0 Anion Gap 13 Estim Creat Clear Calc 65.7 Estimated GFR > 60 Random Glucose 97 Calcium 8.6 Total Bilirubin Direct Bilirubin AST ALT Alkaline Phosphatase Troponin I High Sens < 3.5 Total Protein Albumin Triglycerides 108 Lipase COVID-19 (JEANETH) COVID-19 Clin Com Assessment and Plan (1) Acute pancreatitis: Status: Acute Plan 77 yo M with Alzheimer's Dementia, pancreatitis presents to the hosptal with n/v and abd pain acute pancreatitis lipase 437 no gallstones on imaging, TG 108, does not drink alcohol CT abdomen can't rule out pancreatic lesion (image is motion degraded) - discussed with GI, rec MR abdomen with IV contrast for further evaluation abdominal pain & vomiting resolved advance to clear liquids, NPO at midnight per radiology for MR in am -IVF, pain control -follow lipase -follow up ca 19-9 hypothyroidism - continue levothyroxine dementia rivastigmine is non formulary DVT prophylaxis: Lovenox attending - dr. Carroll Time Spent With Patient Time: Total time managing care of this patient today ____ minutes. Quality Stroke Does the patient have a stroke diagnosis?: No VTE Prior VTE?: No VTE Risk Level:: Medical - moderate - high VTE Device Contraindication: Treatment Not Indicated VTE Drug Contraindication: N/A - Med Ordered
--- NOTE | 2022-12-14 18:22 | P.CNGI_ITS ---
History of Present Illness Data of Consult Service Date: 12/15/22 Requesting physician: Sven Hull Primary Care Provider: Renard Morales MD HPI Reason for consult: pancreatitis 77 yr old patient with past medical history of Alzheimer's and hypothyroidism who i am seeing for assessment for possible pancreatitis. Hx limited from pt due to dementia. Per chart he had sudden onset upper abdominal pain while eating dinner associated with nausea and projectile non bloody emesis, But he has not had any further episodes since admission and managing PO diet easily. He denies any complaints to me. He had imaging which suggested a fullness to the pancreatic body. He also had elevated lipase of 437. Due to FH of panc cancer in his sister there was concern for a panc ca. I personally reviewed the CT scan this admission and from 2020, pancreas appears similar. MArked spinal degeneration noted with scoliosis. [facility] Past Medical History Medical History Dementia Hypothyroidism Family History Family History Sister Pancreatic cancer Surgical History Surgical History No history of previous surgery Social History Social History Household Members: Caregiver Housing: Assisted Living Facility Unable to assess alcohol history related to: Unknown Patient Tobacco Use Status: Tobacco use Unknown Use of substances other than those prescribed or required for medical reasons: Unknown Currently Displaying Signs/Symptoms of Drug Intoxication Withdrawal: No Advance Directives: No Advance Directives Information Provided: No Do you have thoughts of harming others: None Do you have a plan to hurt others: No Plan Recently lost weight without trying: Unsure How much weight loss: Unsure Nutrition Risks: No Nutritional Risk service: No Current occupational status: retired Meds Allergies Allergy/AdvReac Type Severity Reaction Status Date / Time No Known Allergies Allergy Unverified 08/21/21 09:12 [No Known Allergies*] Active Medications: Current Medications Acetaminophen (Acetaminophen 325 Mg Tablet) 650 mg PO Q6H PRN PRN Reason: Pain, Mild (Pain Scale 1-3) Docusate Sodium (Docusate Sodium 100 Mg Capsule) 100 mg PO DAILY PRN PRN Reason: Constipation Enoxaparin Sodium (Enoxaparin Sodium 40 Mg/0.4 Ml Syringe) 40 mg SUBCUT Q24H [facility] Last Admin: 12/14/22 00:30 Dose: 40 mg Lactated Ringer's (Lr) 1,000 mls @ 125 mls/hr IVCONT .Q8H [facility] Last Admin: 12/14/22 15:02 Dose: 150 mls/hr Levothyroxine Sodium (Levothyroxine Sodium 50 Mcg Tablet) 50 mcg PO DAILY@0600 [facility] Last Admin: 12/14/22 10:40 Dose: 50 mcg Ondansetron HCl (Ondansetron Hcl 4 Mg/2 Ml Vial) 4 mg IVPUSH Q8H PRN PRN Reason: Nausea and Vomiting Pharmacy Consult (Consult Rx Perform Med Rec) 1 each MISCELLANE ONCE PRN PRN Reason: Consult order Sodium Chloride (0.9 % Sodium Chloride Flush 3 Ml Syringe) 3 ml IVFLUSH QSHIFT [facility] Last Admin: 12/14/22 14:50 Dose: Not Given Home Medications Medication Instructions Recorded Confirmed Last Taken Type rivastigmine 13.3 mg/24 hour 1 patch topical DAILY 07/27/21 12/14/22 12/13/22 History transdermal patch levothyroxine 50 mcg tablet 50 mcg PO DAILY@0600 08/21/21 12/14/22 12/13/22 History Physical Exam Vital Signs: Vital Signs: Last Vital Signs Temp 98.7 F 12/14/22 08:07 Pulse 65 12/14/22 08:07 Resp 16 12/14/22 08:07 BP 179/84 H 12/14/22 03:52 Pulse Ox 97 12/14/22 03:52 O2 Del Method 12/14/22 03:52 BMI result Body Mass Index 24.0 EXAM: GENERAL: The patient is frail VITAL SIGNS:see workflow HEENT: Nonicteric sclerae, PERRLA, EOMI. Oropharynx clear. Moist mucous membranes. Conjunctivae appear well perfused. No thyroid mass. CHEST: Chest wall is nontender. HEART: Regular rate and rhythm without murmurs. LUNGS: Clear to auscultation bilaterally. ABDOMEN: Soft, positive bowel sounds, nontender, no organomegaly.no flank tenderness SKIN: No rash, no excessive bruising, petechiae, or purpura. NEUROLOGIC: Cranial nerves II-XII intact without motor/sensory deficit. PSYCH: confused Results Labs 12/14/22 06:18 12/14/22 06:18 Labs: Short CBC 12/13/22 12/14/22 Range/Units 19:56 06:18 WBC 9.8 8.5 (4.8-10.8) X10*3/uL Hgb 15.0 14.6 (14.0-18.0) g/dl Hct 43.0 42.5 (42.0-52.0) % Plt Count 234 208 (160-400) X10*3/uL BMP 12/13/22 12/14/22 19:56 06:18 Sodium 139 143 Potassium 3.6 4.3 Chloride 104 109 H Carbon Dioxide 24 25 BUN 17 H 12 Creatinine 0.99 0.94 Calcium 8.9 8.6 Liver Function 12/13/22 Range/Units 19:56 Total Bilirubin 0.5 (0.0-1.0) mg/dL Direct Bilirubin 0.2 (0.0-0.5) mg/dL AST 20 (5-37) U/L ALT 23 (0-40) U/L Alkaline Phosphatase 85 (39-117) U/L Albumin 4.2 (3.5-5.0) g/dL Imaging CT scan - abdomen: Attestation: I personally reviewed and interpreted this imaging study as follows: (sagitall views with normal appearing pancreas, slightly more bluky appearing on coronal but looks similar to last CT 2020) Assessment and Plan (1) Acute pancreatitis: Status: Acute (2) Pancreatic lesion: Status: Acute Plan 1/ Acute abdominal pain with possible pancreatitis, possible lesion in pancreas but his symptoms to have been v short lived and he appears to be back to baseline which is not totally consistent with pancreatitis, could have been gastroenteritis or food poisoning PLAN: 1/ Recommend MRI with contrast for further evaluation 2/ resume diet as doing, 3/ check ca 19-9 Time Spent With Patient Time: Total time managing care of this patient today ____ minutes. Procedures Date of Service Date of Service: 12/15/22
[2022-12-14 19:15] VITALS: BP 152/74; PULSE 61; RESP 18; TEMP 36.4; O2SAT 98
[2022-12-14] MEDS: Lactated Ringers 1,000 ML 125 ML IVCONT (21:41)
[2022-12-15] MEDS: 0.9 % Sodium Chloride Flush 3 ML SYRINGE IVFLUSH ×3 (00:07→15:55)
[2022-12-15] MEDS: Enoxaparin Sodium 40 MG/0.4 ML SYRINGE SUBCUT (00:07)
[2022-12-15 03:24] VITALS: BP 142/82; PULSE 78; RESP 18; TEMP 36.6; O2SAT 96
[2022-12-15] MEDS: Lactated Ringers 1,000 ML 125 ML IVCONT ×2 (05:30→15:45)
[2022-12-15 07:52] VITALS: BP 166/99; PULSE 63; RESP 18; TEMP 36.4; O2SAT 95
[2022-12-15 09:26] LABS: Lipase 30 U/L (8-78)
--- NOTE | 2022-12-15 10:23 | MHC.CM.PN ---
PER MD ROUNDS, PT NOT YET CLEARED FOR DC HE WILL HAVE AN MRI TODAY CURRENT PLAN IS FOR PT TO RETURN TO HIS [facility] AT DC
--- NOTE | 2022-12-15 11:56 | HO.PM.IMPN ---
Subjective Subjective Date of Service: 12/15/22 Interval History: seen and examined this morning follow up for abdominal pain patient someone forgetful abdominal pain seems to have improved. no nausea, no vomiting at this time Review of Systems Review of Systems: Yes all other systems are reviewed and are negative Constitutional Constitutional: Denies chills and Denies fever(s) Cardiovascular Cardiovascular: Denies chest pain, Denies palpitations and Denies dyspnea Respiratory Respiratory: Denies cough and Denies dyspnea Gastrointestinal Gastrointestinal: Denies abdominal pain, Denies diarrhea, Denies nausea and Denies vomiting Endocrine Endocrine: Denies palpitations Physical Exam Vital Signs: Vital Signs: Last Vital Signs Temp 97.5 F 12/15/22 07:52 Pulse 63 12/15/22 07:52 Resp 18 12/15/22 07:52 BP 166/99 H 12/15/22 07:52 Pulse Ox 95 12/15/22 07:52 O2 Del Method 12/15/22 07:52 BMI result Body Mass Index 24.0 Appearing in no acute distress lung sounds are clear to auscultation heart regular rate rhythm, clear S1, S2 positive bowel sounds, abdomen is soft, nontender neuro patient is alert Objective Data Active Medications Acetaminophen (Acetaminophen 325 Mg Tablet) 650 mg PO Q6H PRN PRN Reason: Pain, Mild (Pain Scale 1-3) Docusate Sodium (Docusate Sodium 100 Mg Capsule) 100 mg PO DAILY PRN PRN Reason: Constipation Enoxaparin Sodium (Enoxaparin Sodium 40 Mg/0.4 Ml Syringe) 40 mg SUBCUT Q24H [facility] Last Admin: 12/15/22 00:07 Dose: 40 mg Documented By: DARSHAN Lactated Ringer's (Lr) 1,000 mls @ 125 mls/hr IVCONT .Q8H [facility] Last Admin: 12/15/22 05:30 Dose: 125 mls/hr Documented By: DARSHAN Levothyroxine Sodium (Levothyroxine Sodium 50 Mcg Tablet) 50 mcg PO DAILY@0600 [facility] Last Admin: 12/15/22 05:24 Dose: Not Given Documented By: DARSHAN Non-Admin Reason: NPO Non-Formulary Medication (Rivastigmine) 1 patch TOPICAL DAILY [facility] Ondansetron HCl (Ondansetron Hcl 4 Mg/2 Ml Vial) 4 mg IVPUSH Q8H PRN PRN Reason: Nausea and Vomiting Pharmacy Consult (Consult Rx Perform Med Rec) 1 each MISCELLANE ONCE PRN PRN Reason: Consult order Sodium Chloride (0.9 % Sodium Chloride Flush 3 Ml Syringe) 3 ml IVFLUSH QSHIFT [facility] Last Admin: 12/15/22 08:55 Dose: 3 ml Documented By: JORDON Labs 12/14/22 06:18 12/14/22 06:18 Labs: Laboratory Results - last 24 hr 12/15/22 07:05 Lipase 30 Assessment and Plan (1) Acute pancreatitis: Status: Acute Plan 77 yo M with Alzheimer's Dementia, pancreatitis presents to the hosptal with n/v and abd pain Acute pancreatitis lipase 30 no gallstones on imaging, TG 108, does not drink alcohol CT abdomen can't rule out pancreatic lesion (image is motion degraded) Plan for abd MRI abdominal pain & vomiting resolved advance to clear liquids, NPO for MR IVF, pain control hypothyroidism continue levothyroxine dementia rivastigmine is non formulary family can bring from home DVT prophylaxis: Lovenox attending - Dr. Lanier Continue hospitalization for treatment of acute pancreatitis Time Spent With Patient Time: Total time managing care of this patient today ____ minutes. Quality Stroke Does the patient have a stroke diagnosis?: No VTE Prior VTE?: No VTE Risk Level:: Medical - moderate - high VTE Device Contraindication: Treatment Not Indicated VTE Drug Contraindication: N/A - Med Ordered
[2022-12-15 14:59] VITALS: BP 160/80; PULSE 66; RESP 19; TEMP 36.6; O2SAT 95
--- NOTE | 2022-12-15 15:07 | HE.PHANOTE ---
Received 2 patches of 13.3 mg/24 hour Rivastigmine patches. verified, label generated. Sent down to floor for pt own use.
[2022-12-15] MEDS: Acetaminophen 325 MG TABLET 650 MG PO (15:44)
[2022-12-15 20:00] VITALS: BP 150/65; PULSE 60; RESP 17; TEMP 37.1; O2SAT 95
[2022-12-16] MEDS: Enoxaparin Sodium 40 MG/0.4 ML SYRINGE SUBCUT (00:11)
[2022-12-16 03:38] VITALS: BP 144/92; PULSE 64; RESP 16; TEMP 36.5; O2SAT 95
[2022-12-16] MEDS: Levothyroxine Sodium 50 MCG TABLET PO (05:25)
[2022-12-16] MEDS: 0.9 % Sodium Chloride 1,000 ML 125 ML IVCONT (06:02)
[2022-12-16 08:00] VITALS: BP 184/99; PULSE 58; RESP 18; TEMP 36.4; O2SAT 98
[2022-12-16 09:02] LABS: Carbohydrate Antigen 19-9 28 U/mL (<34)
--- NOTE | 2022-12-16 10:40 | PM.DS ---
DS: Providers Provider Date of Service: 12/16/22 Date of admission: 12/13/22 23:52 Primary care physician: Renard Morales MD Consults: 12/13/22 23:52 Consult to Gastroenterology Routine Consulting Provider: Dominga Germain Reason for consultation: Pancreatitis vs lesion Has provider been notified: No Attending physician on discharge: Higinio Lanier Discharging clinician: Belkis Lozada DS: Diagnosis Discharge Diagnosis (1) Acute pancreatitis: Status: Acute DS: Summary Hospital Course Hospital Course: HP as per admitting provider patient with past medical history of Alzheimer's as well as hypothyroidism presents to the hospital with episodes of nausea vomiting, abdominal pain.? Patient has advanced Alzheimer's, has difficulty expressing himself in words, but his daughter at bedside helped with history. ? apparently while having dinner patient? developed sudden onset abdominal pain across the abdomen, then shortly after developed projectile nausea and vomiting.? Has not had any recurrent episodes while in the ED. denies any previous similar episodes, reports no recent weight loss, reports no history of alcohol abuse. daughter reports that the pt's sister from pancreatic cancer recently, on arrival to the hospital patient hemodynamically stable with elevated blood pressure Labs? are unremarkable except for a lipase of 437, abdominal CT shows abdominal pelvic CT shows fullness in the distal body of the pancreas with mild heterogeneous density, element of pancreatitis with need to be considered given the history, follow-up? is recommended . Acute pancreatitis more likely gastroenteritis as symptoms improved so soon and MRI showed no mass or abscess on pancreas lipase down to 30 no gallstones on imaging, TG 108, does not drink alcohol abdominal pain & vomiting resolved treated with IVF, pain control hypothyroidism continue levothyroxine dementia continue rivastigmine Elevated blood pressure reading Started on low-dose Norvasc 2.5 mg daily Time Spent with Patient Time attestation: Total time managing care of this patient today ____ minutes. Discharge coordination time: Greater than 30 minutes Quality: Safe Use of Opioids Does Pt have an Active Cancer Diagnosis on the Problem List?: No Quality: Stroke Does the patient have a stroke diagnosis?: No Physical Exam Vital Signs: Vital Signs: Last Vital Signs Temp 97.5 F 12/16/22 08:00 Pulse 58 12/16/22 08:00 Resp 18 12/16/22 08:00 BP 184/99 H 12/16/22 08:00 Pulse Ox 98 12/16/22 08:00 O2 Del Method 12/16/22 08:00 BMI result Body Mass Index 24.0 Appearing in no acute distress head is normocephalic atraumatic eyes pupils are PERRLA sclera is anicteric mouth throat mucous membranes are intact and moist neck is supple no lymphadenopathy, no JVD noted lung sounds are clear to auscultation heart regular rate rhythm, clear S1, S2 positive bowel sounds, abdomen is soft, nontender neuro patient is alert x3, no focal deficits DS: Data Data Completed and Pending Labs on day of discharge: Laboratory Results - last 24 hr 12/15/22 07:05 CA 19-9 Antigen 28 Discharge Plan Discharge Anticipated Discharge Date/Time: 12/16/22 10:35 Patient Disposition: Home, Self-Care Discharge Diagnosis: Acute pancreatitis versus gastroenteritis Elevated blood pressure readings Referrals: Renard Morales MD [Primary Care Provider] - 1 Week Discharge Medications: New amlodipine 2.5 mg tablet 2.5 mg PO DAILY Qty: 30 0RF Continued rivastigmine 13.3 mg/24 hour patch 24 hour 1 patch topical DAILY levothyroxine 50 mcg tablet 50 mcg PO DAILY@0600 Discharge Orders: Discharge Order (Routine); Ordered 12/16/22 Ordered By: Belkis Lozada Diet: Advance to usual diet Activity on Discharge: As tolerated Stand Alone Forms: Patient Portal Discharge page Care Plan Goals: complete resolution of symptoms Health Concerns: Acute pancreatitis versus gastroenteritis, seems more likely gastroenteritis as symptoms resolved so quickly MRI was negative for any mass or cyst on the pancreas Plan of Treatment: Follow-up with primary care provider as needed Take all medications as prescribed Low dose amlodipine added for elevated blood pressure readings Assessment: See discharge summary
--- NOTE | 2022-12-16 11:17 | MHC.CM.PN ---
HOME - SELF CARE. DAUGHTER SPOKE WITH Juan TODAY AND IS AWARE OF THE PLAN. IMM 1.15 PREVIOUSLY COMPLETED
[2022-12-16 12:02] VITALS: BP 168/86
--- NOTE | 2022-12-16 12:03 | PC.NURSE ---
BP 168/86. Norvasc ordered but daughter refused patient take it. She believes hypertensive due to stress from being in hospital. Explained that his BP has been elevated the whole admission. Still refused. Educated daughter about blood pressure checks at home and encouraged to give him prescribed amlodopine if BP remains elevated.
== END 2022-12-16 12:07 | disposition home or self-care (01) ==
LOC: HO.ED 23:46 → HO.EDOVER 12-14 00:02 → HO.S3 12-14 01:51
PROVIDERS: Physician Assistant Medical; Admitting Provider Internal Medicine; Emergency Provider Emergency Medicine; PCP Internal Medicine; Visit Provider Nurse Practitioner Acute Care
DX: K85.90 Acute pancreatitis without necrosis or infection, unspecified (principal); R11.2 Nausea with vomiting, unspecified; G30.9 Alzheimer's disease, unspecified; F02.80 Dementia in other diseases classified elsewhere, unspecified severity, without behavioral disturbance, psychotic disturbance, mood disturbance, and anxiety; E03.9 Hypothyroidism, unspecified; R26.81 Unsteadiness on feet; Z79.899 Other long term (current) drug therapy; Z20.822 Contact with and (suspected) exposure to COVID-19; Z20.828 Contact with and (suspected) exposure to other viral communicable diseases
CPT/HCPCS: 36415; 71045; 74177; 74183; 80048; 80076; 83690; 84478; 84484; 85025; 86301; 87635; 93005; 96365; 96366; 96372; 96375; 97161; 99221; 99285; A9585; J1650; Q9967